=== PATIENT | male | born 1935 | race Caucasian/White ===

== ENCOUNTER → 2023-07-06 | Outpatient (CLI) | payer OTHER, SELFPAY ==
--- NOTE | 2023-07-06 06:48 | ECHOD_ITS ---
Version 2 Reason For Study: AFIB Procedure This was a 2D Doppler, Color Flow transthoracic echocardiogram. Exam performed in department. Left Ventricle Normal LV size. Left ventricular systolic function is normal. The left ventricular ejection fraction is 55 %. Stage 1 diastolic dysfunction. No regional wall motion abnormalities noted. Right Ventricle Normal RV size. Normal systolic function. Atria Normal left atrium. Normal right atrium. Mitral Valve Normal mitral valve. Tricuspid Valve Normal tricuspid valve. Mild (1+) tricuspid valve insufficiency. Pulmonary artery systolic pressure is 28 mmHg. Great Vessels Mildly dilated aortic root. The pulmonary artery is normal size. Inferior vena cava collapse with respiration. Pericardium/Pleural No pericardial effusion. MMode/2D Measurements & Calculations LVIDd: 4.7 cm IVSd: 1.1 cm Ao root diam: 4.0 cm LVIDs: 3.3 cm LVPWd: 1.3 cm FS: 30.1 % LAV(MOD-bp): 48.5 ml SV(MOD-sp4): 42.6 ml LVAd ap4: 26.4 cm2 LAV(MOD-bp) Indexed: 24.5 ml/m2 LVLd ap4: 8.1 cm LAV(MOD-sp2): 41.7 ml EDV(MOD-sp4): 73.4 ml LAV(MOD-sp4): 50.7 ml EDV(sp4-el): 73.4 ml LVAs ap4: 15.3 cm2 LVLs ap4: 6.8 cm ESV(MOD-sp4): 30.8 ml ESV(sp4-el): 29.4 ml EF(MOD-sp4): 58.1 % EF(sp4-el): 59.9 % SV(sp4-el): 44.0 ml LA dimension(2D): 2.9 cm LA A4 area: 19.7 cm2 RA A4 area: 9.2 cm2 Time Measurements MV dec time: 0.18 sec Doppler Measurements & Calculations MV E max swapnil: 47.0 cm/sec Lat Peak E' Swapnil: 7.9 cm/sec Med Peak E' Swapnil: 5.4 cm/sec MV A max swapnil: 77.2 cm/sec E/E' lat: 5.9 E/E' med: 8.7 MV E/A: 0.61 MV V2 max: 73.8 cm/sec Ao V2 max: 120.1 cm/sec MV max P.2 mmHg MV dec slope: 257.3 cm/sec2 Ao max P.8 mmHg MV V2 mean: 46.5 cm/sec Ao V2 mean: 83.1 cm/sec MV mean P.0 mmHg Ao mean P.2 mmHg MV V2 VTI: 15.1 cm Ao V2 VTI: 25.3 cm AV (velocity ratio): 0.83 LV V1 max: 101.3 cm/sec PA V2 max: 88.6 cm/sec TR max swapnil: 244.9 cm/sec LV V1 max P.1 mmHg PA V2 mean: 62.1 cm/sec TR max P.0 mmHg LV V1 mean P.1 mmHg LV V1 mean: 67.8 cm/sec LV V1 VTI: 21.1 cm ECHO/Echo Complete Interpretation Summary The left ventricular ejection fraction is 55 %. Normal LV size. Left ventricular systolic function is normal. Stage 1 diastolic dysfunction. Mildly dilated aortic root. Ordering Physician: Bossman Avery Referring Physician: Bossman Avery Performed By: Kaleigh Montanez RCS
--- NOTE | 2023-07-06 06:48 | EKG12_ITS ---
Test Reason : AFIB Blood Pressure : / mmHG Vent. Rate : 078 BPM Atrial Rate : 078 BPM P-R Int : 188 ms QRS Dur : 168 ms QT Int : 456 ms P-R-T Axes : 000 -74 084 degrees QTc Int : 519 ms AV dual-paced rhythm Abnormal ECG Confirmed by EMILY BREWSTER, IRVING ([id number]), online editor DEMETRIUS DAVALOS ([id number]) on 07/07/2023 9:14:10 AM Referred By: Bossman Avery Confirmed By:IRVING DIAZ MD
== END | disposition home or self-care (01) ==
PROVIDERS: Referring Provider Chiropractor; Visit Provider Chiropractor
DX: I48.91 Unspecified atrial fibrillation (principal); R94.31 Abnormal electrocardiogram [ECG] [EKG]; I07.1 Rheumatic tricuspid insufficiency
CPT/HCPCS: 93005; 93306